=== PATIENT | female | born 1975 | race Caucasian/White ===

== ENCOUNTER 2018-06-02 02:04 | Emergency (ER) | payer OTHER ==
[~2018-06-02] VITALS: Ht 157.5 cm; Wt 72.6 kg
[2018-06-02] MEDS ORDERED: SYNTHROID75 MCG (02:15)
== END 2018-06-02 10:05 | disposition home or self-care (01) ==
LOC: ER 02:04 → CPU-OBS 03:26 → ER 10:05
DX: R07.89 Other chest pain (principal)
CPT/HCPCS: G0378; G0379; 93005

== ENCOUNTER 2020-10-20 19:15 | Emergency (ER) | payer OTHER ==
[~2020-10-20] VITALS: Ht 157.5 cm; Wt 54.4 kg
[~2020-10-20 19:15] MED LIST: SYNTHROID75 MCG
[2020-10-21] MEDS ORDERED: MEDROL8 MG PO (02:33)
[2020-10-21] MEDS ORDERED: ZITHROMAX500 MG PO (02:33)
[2020-10-21] MEDS ORDERED: VIT C-ROSE HIP500 MG PO (02:33)
[2020-10-21] MEDS ORDERED: ZINC GLUCONATE100 MG PO (02:33)
== END 2020-10-21 02:48 ==
LOC: ER 19:15
DX: U07.1 COVID-19 (principal); Z20.822 Contact with and (suspected) exposure to COVID-19

== ENCOUNTER → 2020-10-23 | Emergency (ER) | payer OTHER ==
[~2020-10-23] MED LIST changes: +MEDROL8 MG PO; +VIT C-ROSE HIP500 MG PO; +ZINC GLUCONATE100 MG PO; +ZITHROMAX500 MG PO
== END | disposition left against medical advice (07) ==
LOC: ER 07:34
DX: Z53.20 Procedure and treatment not carried out because of patient's decision for unspecified reasons (principal)

== ENCOUNTER 2024-06-29 08:48 | Outpatient (CLI) | payer OTHER | END 2024-06-29 08:51 | disposition home or self-care (01) | LOC: SONOGRAMA 08:48 | PROVIDERS: ATTEND Pathology Anatomic Pathology & Clinical Pathology | DX: E04.1 Nontoxic single thyroid nodule (principal); D34 Benign neoplasm of thyroid gland; E06.3 Autoimmune thyroiditis ==

== ENCOUNTER 2024-11-23 20:30 | Emergency (ER) | payer OTHER ==
[~2024-11-23] VITALS: Ht 154.9 cm; Wt 68.0 kg
[2024-11-23] MEDS ORDERED: KETOROLAC TROMETHAMINE 60 MG VIAL IM ONE ×2 (21:00→21:14)
== END 2024-11-23 22:28 | disposition home or self-care (01) ==
LOC: ER 20:48
DX: S69.82XA Other specified injuries of left wrist, hand and finger(s), initial encounter (principal); W20.8XXA Other cause of strike by thrown, projected or falling object, initial encounter; Y93.89 Activity, other specified; Y92.89 Other specified places as the place of occurrence of the external cause; Z88.2 Allergy status to sulfonamides